=== PATIENT | male | born 1980 | race Caucasian/White ===

== ENCOUNTER 2017-11-24 14:23 | Emergency (ER) | payer OTHER, BC ==
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
[2017-11-24 16:47] VITALS: BP 130/85
== END 2017-11-24 15:42 | disposition home or self-care (01) ==
LOC: CED 14:23
DX: S06.0X9A Concussion with loss of consciousness of unspecified duration, initial encounter (principal); S16.1XXA Strain of muscle, fascia and tendon at neck level, initial encounter; V49.49XA Driver injured in collision with other motor vehicles in traffic accident, initial encounter; Y92.410 Unspecified street and highway as the place of occurrence of the external cause; Y99.8 Other external cause status; Y93.89 Activity, other specified